=== PATIENT | female | born 1975 | race Caucasian/White ===

== ENCOUNTER 2020-11-06 00:27 | Emergency (ER) | payer OTHER, MEDICAID ==
[~2020-11-06] VITALS: Ht 165.1 cm; Wt 59.0 kg
[2020-11-06] MEDS ORDERED: DEPAKOTE500 MG PO (00:42)
[2020-11-06] MEDS ORDERED: XANAX 0.5 MG0.5 M1 PO (00:43)
[2020-11-06] MEDS ORDERED: LAMICTAL 25 MG25 MG PO (00:43)
[2020-11-06] MEDS ORDERED: PROAIR HFA8.5 GM INH (00:43)
[2020-11-06 02:27] VITALS: BP 135/72
== END 2020-11-06 02:28 | disposition home or self-care (01) ==
LOC: M.ERS 00:27
DX: S69.82XA Other specified injuries of left wrist, hand and finger(s), initial encounter (principal); Z90.710 Acquired absence of both cervix and uterus; Z91.018 Allergy to other foods; W10.8XXA Fall (on) (from) other stairs and steps, initial encounter; Y93.89 Activity, other specified; Y92.89 Other specified places as the place of occurrence of the external cause; Y99.8 Other external cause status